=== PATIENT | female | born 1995 | race African-American/Black ===

== ENCOUNTER → 2024-03-05 11:17 | Outpatient (REF) | payer OTHER, SELFPAY ==
[2024-03-05 15:43] LABS: Rubella Positive
[2024-03-05 20:19] LABS: Hepatitis B Surface Antibody Negative
[2024-03-07 13:37] LABS: Quantiferon Mitogen minus NIL 7.72 IU/mL; Quantiferon NIL 0.02 IU/mL; Quantiferon TB Gold Plus Negative (Negative)
[2024-03-09 16:55] LABS: Mumps Virus IgG Positive; Varicella Zoster IgG (VZV) Positive
[2024-03-10 14:34] LABS: Rubeola (Measles) IgG Positive
== END ==
LOC: OHS 11:17
PROVIDERS: ATTENDING PHYSICIAN Nurse Practitioner Family
DX: Z23 Encounter for immunization (principal)
CPT/HCPCS: 36415; 86480; 86706; 86735; 86762; 86765; 86787

== ENCOUNTER → 2024-05-23 09:33 | Outpatient (REF) | payer OTHER, SELFPAY ==
[2024-05-25 19:50] LABS: Hepatitis B Surface Antibody Negative
== END ==
LOC: OHS 09:33
PROVIDERS: ATTENDING PHYSICIAN Nurse Practitioner Family
DX: Z23 Encounter for immunization (principal)
CPT/HCPCS: 86706